=== PATIENT | female | born 1980 | race Hispanic/Latino ===

== ENCOUNTER 2017-11-23 15:45 | Emergency (ER) | payer OTHER ==
[2017-11-23 15:54] VITALS: BP 143/80; PULSE 88; RESP 16; TEMP 98.8; O2SAT 100
--- NOTE | 2017-11-23 16:19 | ED PDOC ---
Lower Extremity Pain/Injury Time Seen by Provider: 11/23/17 15:59 Chief Complaint (Nursing): Lower Extremity Problem/Injury Chief Complaint (Provider): Knee pain History Per: Patient History/Exam Limitations: no limitations Onset/Duration Of Symptoms: Days (today) Current Symptoms Are (Timing): Still Present Additional Complaint(s): Pt. was doing yoga and stretching/moving her knee on the right. Then she heard a pop and not able to move the knee since with pain on any weight on leg. No numbness, tingles, weakness. No hop or calf pain. Has had similar in the past and she did not see anyone. It slowly got better. Past Medical History Reviewed: Nursing Documentation, Vital Signs Vital Signs: Last Vital Signs Temp 98.8 F 11/23/17 15:52 Pulse 88 11/23/17 15:52 Resp 16 11/23/17 15:52 BP 143/80 11/23/17 15:52 Pulse Ox 100 11/23/17 15:52 - Medical History PMH: No Chronic Diseases - Surgical History Surgical History: No Surg Hx - Family History Family History: States: Unknown Family Hx - Home Medications Home Medications: Ambulatory Orders Medication Instructions Recorded Ibuprofen [Motrin] 600 mg PO TID 7 Days tab 11/23/17 - Allergies Allergies/Adverse Reactions: Allergies Allergy/AdvReac Type Severity Reaction Status Date / Time No Known Allergies Allergy Verified 11/23/17 15:51 Review of Systems Constitutional: Negative for: Weakness Cardiovascular: Negative for: Chest Pain Respiratory: Negative for: Cough, Shortness of Breath Musculoskeletal: Positive for: Leg Pain. Negative for: Neck Pain Skin: Negative for: Rash Neurological: Negative for: Weakness, Numbness, Dizziness Physical Exam - Reviewed Nursing Documentation Reviewed: Yes Vital Signs Reviewed: Yes - Physical Exam Neck: Positive for: Normal, Painless ROM Cardiovascular/Chest: Positive for: Regular Rate, Rhythm Respiratory: Positive for: CNT, Normal Breath Sounds Pulses-Dorsalis Pedis (R): 2+ Pulses-Post. Tibialis (R): 2+ Back: Positive for: Normal Inspection. Negative for: L CVA Tenderness, R CVA Tenderness Extremity: Positive for: Tenderness (R lateral knee; no laxity; popliteal pulse 2+; no sensory deficits; Extending knee R limited due to pain;), Capillary Refill (less then 2 second). Negative for: Pedal Edema, Calf Tenderness Neurologic/Psych: Positive for: Alert - ECG O2 Sat by Pulse Oximetry: 100 Pulse Ox Interpretation: Normal - Progress ED Course And Treament: 1825: Stable. AAOx3. Pt. does not want a ct scan. Aware there can be fx and other etiologies that we are missing from not getting the ct. Pt. will go home and fu with ortho. No weight on leg. Procedures - Splinting Location: Right Pre-Made Type: knee immobilizer Pre-Proc Neuro Vasc Exam: normal Post-Proc Neuro Vasc Exam: normal Progress: Stable. Tolerated well. Disposition - Clinical Impression Clinical Impression: Knee injury - Patient ED Disposition Is Patient to be Admitted: No Counseled Patient/Family Regarding: Studies Performed, Diagnosis, Need For Followup, Rx Given - Disposition Referrals: Neto Verde III, MD [Staff Provider] - 11/24/17 Disposition: Routine/Home Disposition Time: 18:00 Condition: STABLE Additional Instructions: Return if not better in 3 days. You have chosen not to get a catscan of your knee at this time. You are aware of possibly missing fractures or other etiologies that could be caught on a catscan. Make sure to follow up with the orthopedic doctor and no weight on your right leg. Prescriptions: Ibuprofen [Motrin] 600 mg PO TID 7 Days tab Instructions: Ligament Injuries in the Knee, Knee Pain, Internal Derangement of the Knee Forms: [facility] ([employer]), [facility] ED School/Work Excuse
--- NOTE | 2017-11-23 18:14 | RAD ---
PROCEDURE: Right Knee Radiographs. HISTORY: pain COMPARISON: None. FINDINGS: BONES: No acute fracture. JOINTS: Unremarkable. JOINT EFFUSION: None. OTHER FINDINGS: None. IMPRESSION: No demonstrated fracture or dislocation.
== END 2017-11-23 18:46 | disposition home or self-care (01) ==
LOC: H.ER 15:45
DX: S89.91XA Unspecified injury of right lower leg, initial encounter (principal); X50.9XXA Other and unspecified overexertion or strenuous movements or postures, initial encounter; Y92.89 Other specified places as the place of occurrence of the external cause
CPT/HCPCS: 29530; 73564; 81025; 96372; 99283; J1885